=== PATIENT | female | born 1995 | race Caucasian/White ===

== ENCOUNTER 2016-10-27 12:42 | Emergency (ER) | payer SELFPAY ==
[2016-10-27 12:51] VITALS: BP 116/60
--- NOTE | 2016-10-27 12:51 | ER Document Report ---
ED Medical Screen (RME) - General Stated Complaint: ABDOMINAL PAIN Notes: Patient was brought in by EMS today complaining of sharp pain under her ribs bilaterally and upper abdomen. Denies nausea vomiting or diarrhea. No congestion but does have an occasional cough. Started on amoxicillin yesterday for dental abscess. Took 2 Tylenol #3 this am. Patient denies PMH. Pain is less than when EMS called. I have greeted and performed a rapid initial assessment of this patient. A comprehensive ED assessment and evaluation of the patient, analysis of test results and completion of the medical decision making process will be conducted by additional ED providers. TRAVEL OUTSIDE OF THE [place] IN LAST 30 DAYS: No - Related Data Allergies/Adverse Reactions: No Known Allergies Allergy (Unverified 10/27/16 12:49) Physical Exam - Respiratory Respiratory status: No respiratory distress Breath sounds: Normal
[2016-10-27 13:22] LABS: ABSOLUTE EOSINOPHILS # (AUTO) 0.2 10^3/uL (0.0-0.6); ABSOLUTE LYMPHOCYTES (AUTO) 3.8 10^3/uL (0.5-4.7); ABSOLUTE MONOCYTES (AUTO) 0.7 10^3/uL (0.1-1.4); BASOPHILS % (AUTO) 0.2 % (0-2); EOSINOPHILS % (AUTO) 2.5 % (0-6); HEMATOCRIT 42.8 % (36.0-47.0); HEMOGLOBIN 14.8 g/dL (12.0-15.5); HGB HCT DIFFERENCE 1.6; MEAN CORPUSCULAR HEMOGLOBIN 29.2 pg (27.0-33.4); MEAN CORPUSCULAR HGB CONC 34.6 g/dL (32.0-36.0); MEAN CORPUSCULAR VOLUME 85 fl (80-97); MONOCYTES % (AUTO) 7.3 % (3-13); RED BLOOD COUNT 5.06 10^6/uL (3.72-5.28); RED CELL DISTRIBUTION WIDTH 13.4 % (11.5-14.0); WHITE BLOOD COUNT 9.8 10^3/uL (4.0-10.5)
[2016-10-27 13:33] LABS: APPEARANCE,URINE CLOUDY; BILIRUBIN,URINE NEGATIVE (NEGATIVE); GLUCOSE, URINE NEGATIVE (NEGATIVE); KETONES,URINE NEGATIVE (NEGATIVE); LEUKOCYTE ESTERASE,URINE NEGATIVE (NEGATIVE); NITRITE,URINE NEGATIVE (NEGATIVE); PROTEIN,URINE NEGATIVE (NEGATIVE); URINE SPECIFIC GRAVITY 1.028; UROBILINOGEN,URINE NEGATIVE mg/dL (<2.0)
[2016-10-27 13:42] LABS: ALANINE AMINOTRANSFERASE 62 U/L (9-52); ALBUMIN 4.6 g/dL (3.5-5.0); ALKALINE PHOSPHATASE 103 U/L (38-126); ANION GAP 12 (5-19); ASPARTATE AMINO TRANSFERASE 48 U/L (14-36); BILIRUBIN,DIRECT 0.1 mg/dL (0.0-0.4); BILIRUBIN,TOTAL 0.4 mg/dL (0.2-1.3); BLOOD UREA NITROGEN 11 mg/dL (7-20); CARBON DIOXIDE 25 mmol/L (22-30); CHLORIDE 105 mmol/L (98-107); CREATININE RESULT 0.55 mg/dL (0.52-1.25); GLUCOSE 114 mg/dL (75-110); POTASSIUM 4.6 mmol/L (3.6-5.0); SODIUM 141.8 mmol/L (137-145); TOTAL PROTEIN 7.6 g/dL (6.3-8.2)
[2016-10-27] MEDS ORDERED: LIDOCAINE 2% VISCOUS SOLN 20 ML UDCUP PO ONE (13:47)
[2016-10-27] MEDS ORDERED: MAG HYDROX/AL HYDROX/SIMETH SUSP 30 ML UDCUP PO ONE (13:47)
--- NOTE | 2016-10-27 13:48 | ER Document Report ---
ED GI/ - General Chief Complaint: Back Pain Stated Complaint: ABDOMINAL PAIN Mode of Arrival: Ambulatory Information source: Patient Notes: Patient states she was eating breakfast today and developed epigastric, left upper quadrant abdominal pain that went through to her back. Patient denies any urinary symptoms. Patient denies any cough or cold symptoms. TRAVEL OUTSIDE OF THE [place] IN LAST 30 DAYS: No - HPI Patient complains to provider of: Abdominal pain. No: Diarrhea, Dysuria, Vomiting Onset: This morning Timing/Duration: Sudden Quality of pain: Sharp Severity at maximum: Severe Severity in ED: Moderate Pain Level: 3 Location: Epigastric, LUQ, RUQ Vaginal bleeding (Compared to normal period): None Sexual history: Active Associated symptoms: Urinary frequency. denies: Chest pain, Diarrhea, Loss of appetite, Nausea, Urinary hesitancy, Urinary retention, Urinary urgency, Vaginal discharge, Vomiting Exacerbated by: Denies Relieved by: Denies Similar symptoms previously: No Recently seen / treated by doctor: No - Related Data Allergies/Adverse Reactions: No Known Allergies Allergy (Unverified 10/27/16 12:49) Past Medical History - General Information source: Patient Last Menstrual Period: 09/26/2016 - Social History Smoking Status: Current Every Day Smoker Chew tobacco use (# tins/day): No Frequency of alcohol use: Occasional Drug Abuse: None Occupation: retail Lives with: Family Family History: Reviewed & Not Pertinent Patient has suicidal ideation: No Patient has homicidal ideation: No - Medical History Medical History: Negative Renal/ Medical History: Denies: Hx Peritoneal Dialysis Past Surgical History: Reports: Hx Section Review of Systems - Review of Systems Constitutional: No symptoms reported. denies: Fever, Recent illness EENT: No symptoms reported Cardiovascular: No symptoms reported. denies: Chest pain Respiratory: No symptoms reported. denies: Cough, Short of breath Gastrointestinal: Abdominal pain. denies: Diarrhea, Nausea, Vomiting, Poor appetite Genitourinary: Frequency. denies: Dysuria Female Genitourinary: No symptoms reported. denies: Vaginal discharge, Vaginal bleeding Musculoskeletal: Back pain Skin: No symptoms reported Hematologic/Lymphatic: No symptoms reported Neurological/Psychological: No symptoms reported. denies: Headaches Physical Exam - Vital signs Vitals: Temp Pulse Resp BP Pulse Ox 97.6 F 89 18 116/60 98 10/27/16 12:48 10/27/16 12:48 10/27/16 12:48 10/27/16 12:48 10/27/16 12:48 - General General appearance: Appears well, Alert In distress: None Notes: PHYSICAL EXAMINATION: GENERAL: Well-appearing and in no acute distress. HEAD: Atraumatic, normocephalic. EYES: sclera anicteric, conjunctiva are normal. ENT: nares patent. Moist mucous membranes. NECK: Normal range of motion, supple without lymphadenopathy LUNGS: CTAB and equal. No wheezes rales or rhonchi. HEART: Regular rate and rhythm without murmurs ABDOMEN: Soft, right upper quadrant, epigastric, left upper quadrant tenderness , normal bowel sounds, no guarding. EXTREMITIES: Normal range of motion, no pitting edema. No cyanosis. BACK: No midline tenderness, no step-off or deformity. No CVA tenderness NEUROLOGICAL: Cranial nerves grossly intact. Normal speech. Normal gait. PSYCH: Normal mood, normal affect. SKIN: Warm, Dry, normal turgor, no rashes or lesions noted Course - Re-evaluation Re-evalutation: 10/27/16 15:23 Abdomen soft, no guarding. Patient states that pain improved some after GI cocktail although has not completely resolved. Discussed results of patient's ultrasound with patient. Patient encouraged to follow-up with primary doctor as well as marketing project manager for further evaluation. 10/27/16 15:[address] Urena regarding patient presentation, agrees with discharge plan of care. - Vital Signs Vital signs: Temp Pulse Resp BP Pulse Ox 97.6 F 89 18 116/60 98 10/27/16 12:48 10/27/16 12:48 10/27/16 12:48 10/27/16 12:48 10/27/16 12:48 - Laboratory Result Diagrams: 10/27/16 13:00 10/27/16 13:00 Laboratory results interpreted by me: 10/27/16 13:00 Glucose 114 H AST 48 H ALT 62 H Labs- Entire Visit 10/27/16 10/27/16 10/27/16 13:00 13:00 13:00 WBC 9.8 RBC 5.06 Hgb 14.8 Hct 42.8 MCV 85 MCH 29.2 MCHC 34.6 RDW 13.4 Plt Count 292 Seg Neutrophils % 51.0 Lymphocytes % 39.0 Monocytes % 7.3 Eosinophils % 2.5 Basophils % 0.2 Absolute Neutrophils 5.0 Absolute Lymphocytes 3.8 Absolute Monocytes 0.7 Absolute Eosinophils 0.2 Absolute Basophils 0.0 Sodium 141.8 Potassium 4.6 Chloride 105 Carbon Dioxide 25 Anion Gap 12 BUN 11 Creatinine 0.55 Est GFR ( Amer) > 60 Est GFR (Non-Af Amer) > 60 Glucose 114 H Calcium 10.0 Total Bilirubin 0.4 Direct Bilirubin 0.1 Indirect Bilirubin Not Reportable Neonat Total Bilirubin Not Reportable AST 48 H ALT 62 H Alkaline Phosphatase 103 Total Protein 7.6 Albumin 4.6 Lipase 41.0 Beta HCG, Quant < 2.39 Total Beta HCG NEGATIVE Urine Color YELLOW Urine Appearance CLOUDY Urine pH 5.0 Ur Specific [place] 1.028 Urine Protein NEGATIVE Urine Glucose (UA) NEGATIVE Urine Ketones NEGATIVE Urine Blood NEGATIVE Urine Nitrite NEGATIVE Urine Bilirubin NEGATIVE Urine Urobilinogen NEGATIVE Ur Leukocyte Esterase NEGATIVE Urine WBC (Auto) 1 Urine RBC (Auto) 1 Urine Bacteria (Auto) TRACE Squamous Epi Cells Auto 13 Urine Mucus (Auto) OCC Urine Ascorbic Acid NEGATIVE - Diagnostic Test Radiology reviewed: Reports reviewed Discharge - Discharge Clinical Impression: Abdominal pain Qualifiers: Abdominal location: epigastric Qualified Code(s): R10.13 - Epigastric pain Condition: Stable Disposition: HOME, SELF-CARE Instructions: Abdominal Pain ([facility]), Gallbladder Disease ([facility]), Low-Fat Diet ( [facility]) Additional Instructions: Return immediately for any new or worsening symptoms Followup with your primary care provider, call tomorrow to make a followup appointment Follow up with a marketing project manager for further evaluation, call Sunday for an appointment Your ultrasound was concerning for the possibility of gallstones. Decrease fats in your diet and follow-up with your primary doctor or general surgeon for further evaluation Prescriptions: Omeprazole Magnesium [Prilosec Otc] 20 mg PO DAILY #15 tablet. Sucralfate [Carafate 1 gm Tablet] 1 gm PO ACHS #40 tablet Forms: Return to Work Referrals: NATHANAEL LOPEZ MD [ACTIVE STAFF] - Follow up as needed [facility] [Provider Group] - Follow up in 3-5 days CAROLINA JEAN MD [ACTIVE STAFF] - Follow up in 1 week [facility] [Provider Group] - Follow up in 3-5 days
== END 2016-10-27 15:37 | disposition home or self-care (01) ==
LOC: ER 12:42
DX: R10.13 Epigastric pain (principal); R10.12 Left upper quadrant pain; R10.11 Right upper quadrant pain; R35.0 Frequency of micturition; F17.200 Nicotine dependence, unspecified, uncomplicated
CPT/HCPCS: 99284; 36415; 84702; 83690; 85025; 80053; 81001; 76705; J3490

== ENCOUNTER 2020-07-01 10:50 | Emergency (ER) | payer SELFPAY ==
[2020-07-01] MEDS ORDERED: BUTALB/ACETAMINOPHEN/CAFFEINE 1 TAB EACH PO ONE (11:42)
--- NOTE | 2020-07-01 12:46 | RADIOLOGY REPORT (SQ) ---
EXAM DESCRIPTION: CT HEAD WITHOUT IMAGES COMPLETED DATE/TIME: 07/01/2020 12:35 pm REASON FOR STUDY: right frontal headache COMPARISON: None. TECHNIQUE: Axial images acquired through the brain without intravenous contrast. Images reviewed wi th bone, brain and subdural windows. Additional sagittal and coronal reconstructions were generated. Images stored on PACS. All CT scanners at this facility use dose modulation, iterative reconstruction, and/or weight based d osing when appropriate to reduce radiation dose to as low as reasonably achievable (ALARA). [facility]: Dose Right [facility]: CareDose [facility]: Dose Right [facility]: Teradose 4D [facility]: Smart Anturis RADIATION DOSE: CT Rad equipment meets quality standard of care and radiation dose reduction techniq ues were employed. CTDIvol: 53.2 mGy. DLP: 1017 mGy-cm. mGy. LIMITATIONS: None. FINDINGS: VENTRICLES: Normal size and contour. CEREBRUM: No masses. No hemorrhage. No midline shift. No evidence for acute infarction. Normal gra y/white matter differentiation. No areas of low density in the white matter. CEREBELLUM: No masses. No hemorrhage. No alteration of density. No evidence for acute infarction. EXTRAAXIAL SPACES: No fluid collections. No masses. ORBITS AND GLOBE: No intra- or extraconal masses. Normal contour of globe without masses. CALVARIUM: No fracture. PARANASAL SINUSES: No fluid or mucosal thickening. SOFT TISSUES: No mass or hematoma. OTHER: No other significant finding. IMPRESSION: NORMAL BRAIN CT WITHOUT CONTRAST. EVIDENCE OF ACUTE STROKE: NO. COMMENT: Quality ID # [id number]: Final reports with documentation of one or more dose reduction techniques (e.g., Automated exposure control, adjustment of the mA and/or kV according to patient size, use of iterative reconstruction technique) TECHNICAL DOCUMENTATION: JOB ID: [id number] 2010 [employer]- All Rights Reserved Reading location - IP/workstation name: [email or web address]
[2020-07-01] MEDS ORDERED: KETOROLAC TROMETHAMINE 60 MG/2 ML SDV IM ONE (13:10)
--- NOTE | 2020-07-01 14:07 | ER Document Report ---
ED General - General Chief Complaint: Headache Stated Complaint: HEADACHE,VISION BLURRED Time Seen by Provider: 07/01/20 11:25 Mode of Arrival: Ambulatory Information source: Patient TRAVEL OUTSIDE OF THE [place] IN LAST 30 DAYS: No - HPI Notes: Patient presents with headache. Headache is primarily frontal and right. She states it is a "fullness" sensation. It is been present for approximately 2 to 3 days. She denies any type of cough cold or congestion. No sinus symptoms. She denies any fevers. No trauma. She states she has had some intermittent brief vision changes with this headache. These vision changes occur randomly. She is unable to tell if it involves one eye or both eyes. She did vomit once yesterday but none today. She also had some diarrhea yesterday but none today. She states that her son tested negative for Covid but her son has been around someone who was positive for Covid. - Related Data Allergies/Adverse Reactions: No Known Allergies Allergy (Verified 07/01/20 11:09) Past Medical History - General Information source: Patient - Social History Smoking Status: Former Smoker Frequency of alcohol use: None Drug Abuse: None Family History: Reviewed & Not Pertinent Patient has homicidal ideation: No Renal/ Medical History: Denies: Hx Peritoneal Dialysis Past Surgical History: Reports: Hx Section Review of Systems - Review of Systems Constitutional: denies: Chills, Fever Cardiovascular: denies: Chest pain, Palpitations Respiratory: denies: Cough, Short of breath -: Yes All other systems reviewed and negative Physical Exam - Vital signs Vitals: Temp Pulse Resp BP Pulse Ox 98.2 F 89 18 120/70 99 07/01/20 10:58 07/01/20 10:58 07/01/20 10:58 07/01/20 10:58 07/01/20 10:58 Interpretation: Normal - General General appearance: Appears well, Alert - HEENT Head: Normocephalic, Atraumatic Eyes: Normal Pupils: PERRL - Respiratory Respiratory status: No respiratory distress Chest status: Nontender Breath sounds: Normal Chest palpation: Normal - Cardiovascular Rhythm: Regular Heart sounds: Normal auscultation Murmur: No - Abdominal Inspection: Normal Distension: No distension Bowel sounds: Normal Tenderness: Nontender Organomegaly: No organomegaly - Back Back: Normal, Nontender - Extremities General upper extremity: Normal inspection, Nontender, Normal color, Normal ROM, Normal temperature General lower extremity: Normal inspection, Nontender, Normal color, Normal ROM, Normal temperature, Normal weight bearing. No: Ceasar's sign - Neurological Neuro grossly intact: Yes Cognition: Normal Orientation: AAOx4 [place] Coma Scale Eye Opening: Spontaneous [place] Coma Scale Verbal: Oriented [place]zy Coma Scale Motor: Obeys Commands [place] Coma Scale Total: 15 Speech: Normal Cranial nerves: Normal Cerebellar coordination: Normal. No: Gait ataxia Motor strength normal: LUE, RUE, LLE, RLE Additional motor exam normals: Equal carpet layer. No: Pronator drift Sensory: Normal - Psychological Associated symptoms: Normal affect, Normal mood - Skin Skin Temperature: Warm Skin Moisture: Dry Skin Color: Normal Course - Re-evaluation Re-evalutation: 07/01/20 14:03 Patient presents with headache and vision changes. I did a thorough neurological exam and can find no focal deficits. Eye exam is also unremarkable. Head CT is unremarkable. Vital signs are stable. Patient does feel better after a Toradol shot. I am going to discharge patient with pain medicine and nausea medicine. Symptoms seem consistent with a viral syndrome. A Covid test is pending. I have also recommended to the patient that she follow-up with ophthalmology as soon as possible. The patient was evaluated during a global COVID-19 pandemic and that diagnosis was suspected/considered upon their initial presentation. Their evaluation, treatment and testing was consistent with current guidelines for patients who present with complaints or symptoms and may be related to COVID-19. - Vital Signs Vital signs: Temp Pulse Resp BP Pulse Ox 98.2 F 89 18 120/70 99 07/01/20 11:00 07/01/20 10:58 07/01/20 10:58 07/01/20 10:58 07/01/20 10:58 - Diagnostic Test Radiology reviewed: Image reviewed, Reports reviewed Discharge - Discharge Clinical Impression: Viral syndrome Headache Qualifiers: Headache type: unspecified Headache chronicity pattern: acute headache Intractability: intractable Qualified Code(s): R51.9 - Headache, unspecified Condition: Stable Disposition: HOME, SELF-CARE Instructions: COVID-19 Guidance for Persons Under Investigation, Headache ([facility]), Toradol Injection ([facility]), Viral Syndrome ([facility]) Additional Instructions: Please follow-up with ophthalmology as soon as possible. Please quarantine yourself until the results of your Covid test have returned. Prescriptions: Ondansetron [Zofran Odt 4 mg Tablet] 1 - 2 tab PO Q4HP PRN #10 tab.rapdis PRN Reason: Butalb/Acetaminophen/Caffeine [Fioricet 50-300-40 mg Capsule] 1 cap PO Q4 PRN #30 cap PRN Reason: Forms: Return to Work Referrals: VIRGEN LUX DO [ACTIVE STAFF] - Follow up tomorrow
[2020-07-01 14:22] VITALS: BP 122/74
== END 2020-07-01 14:22 | disposition home or self-care (01) ==
LOC: ER 10:50
DX: R51.9 Headache, unspecified (principal); B34.9 Viral infection, unspecified; H53.8 Other visual disturbances; Z87.891 Personal history of nicotine dependence; Z20.828 Contact with and (suspected) exposure to other viral communicable diseases
CPT/HCPCS: 99284; 96372; 87635; 70450; J3490; J1885; C9803